=== PATIENT | female | born 1950 | race Caucasian/White ===

== ENCOUNTER → 2016-11-08 | Outpatient (CLI) | payer OTHER ==
[~2016-11-08] MED LIST: ASCO500T87 PO; CALC8.5C PO; DEXT1LIQ PO; GLUC10007 PO; IBUP-103 PO; LEVO50TA PO; NUTRTAB PO; PRAV20TA PO; VITA400C15 PO; ZNTT/150 PO
--- NOTE | 2016-11-08 12:26 | MAMMOGRAPHY REPORT ---
BILATERAL DIGITAL SCREENING MAMMOGRAM WITH CAD: 11/08/2016 CLINICAL HISTORY: Routine screening. Patient has no complaints. TECHNIQUE: Current study was also evaluated with a Computer Aided Detection (CAD) system. Bilatera l CC and MLO views were obtained. COMPARISON: Comparison is made to exams dated: 11/03/2015 ultrasound, 11/03/2015 mammogram, 10/11/2015 mammogram, 10/09/2014 mammogram, 11/18/2012 mammogram, and 12/19/2010 mammogram - [facility]. BREAST COMPOSITION: There are scattered areas of fibroglandular density in both breasts. FINDINGS: No suspicious masses, calcifications, or areas of architectural distortion are noted in e ither breast. There has been no significant interval change compared to prior exams. IMPRESSION: ACR BI-RADS CATEGORY 1: NEGATIVE There is no mammographic evidence of malignancy. A 1 year screening mammogram is recommended. The p atient will receive written notification of the results. Approximately 10% of breast cancers are not detected with mammography. A negative mammographic repor t should not delay biopsy if a clinically suggestive mass is present. Nelida Holder M.D. /:11/08/2016 12:08:07 [employer]el[employer]earing Maker: Mary Maldonado, [facility] letter sent: Normal 1/2 BI-RADS Code: ACR BI-RADS Category 1: Negative
== END | disposition home or self-care (01) ==
LOC: C.MAMM 10:46
PROVIDERS: ATTEND Internal Medicine
DX: Z12.31 Encounter for screening mammogram for malignant neoplasm of breast (principal)

== ENCOUNTER → 2016-11-10 | Outpatient (CLI) | payer OTHER ==
[2016-11-10 12:39] LABS: BASO % 1.5 %; BASO ABS # 0.05 K/uL (0-0.2); COMPLETE YES; EOS % 2.9 %; HEMATOCRIT 42.4 % (37-47); IG% 0.3 %; LYMPH % 25.7 %; LYMPH ABS # 0.88 K/uL (1.2-3.4); MEAN CELL VOLUME 93.4 fL (80-100); MEAN CORPUSCULAR HEMOGLOBIN 30.4 pg (25-34); MEAN CORPUSCULAR HGB CONC 32.5 g/dl (32-36); MEAN PLATELET VOLUME 10.7 fL (7.4-10.4); MONO % 9.1 %; NEUT % 60.5 %; PLATELET COUNT 228 K/uL (130-400); RED BLOOD COUNT 4.54 M/uL (4.2-5.4); WHITE BLOOD COUNT 3.42 K/uL (4.8-10.8)
[2016-11-10 13:03] LABS: CHOLESTEROL/HDL RATIO 3.3
== END | disposition home or self-care (01) ==
LOC: C.LABBFT 07:45
PROVIDERS: ATTEND Internal Medicine
DX: E78.00 Pure hypercholesterolemia, unspecified (principal); D72.819 Decreased white blood cell count, unspecified

== ENCOUNTER → 2016-11-15 | Outpatient (CLI) | payer OTHER | END | disposition home or self-care (01) | LOC: C.LABBFT 09:00 | PROVIDERS: ATTEND Internal Medicine | DX: Z11.59 Encounter for screening for other viral diseases (principal) ==

== ENCOUNTER → 2017-05-14 | Outpatient (CLI) | payer OTHER ==
[2017-05-14 12:24] LABS: URINE APPEARANCE CLEAR (CLEAR); URINE BILIRUBIN NEG (NEG); URINE COLOR YELLOW; URINE EPITHELIAL CELL AUTO 0-5 /lpf (0-5); URINE NITRITE NEG (NEG); URINE PH 8.5 (4.5-7.5); URINE SPECIFIC GRAVITY 1.006 (1.000-1.030); UROBILINOGEN NEG (NEG); ZZUR CULT IF INDIC CLEAN CATCH NO
[2017-05-14 12:26] LABS: BASO % 0.8 %; BASO ABS # 0.03 K/uL (0-0.2); COMPLETE YES; EOS % 2.5 %; HEMATOCRIT 42.3 % (37-47); IG% 0.3 %; LYMPH % 27.4 %; LYMPH ABS # 0.99 K/uL (1.2-3.4); MEAN CELL VOLUME 93.4 fL (80-100); MEAN CORPUSCULAR HEMOGLOBIN 30.2 pg (25-34); MEAN CORPUSCULAR HGB CONC 32.4 g/dl (32-36); MEAN PLATELET VOLUME 10.4 fL (7.4-10.4); MONO % 8.3 %; NEUT % 60.7 %; PLATELET COUNT 232 K/uL (130-400); RED BLOOD COUNT 4.53 M/uL (4.2-5.4); WHITE BLOOD COUNT 3.61 K/uL (4.8-10.8)
[2017-05-14 12:28] LABS: MANUAL MICROSCOPIC REQUIRED? NO; REVIEW REQ? NO
[2017-05-14 13:03] LABS: ALT/SGPT 17 U/L (12-78); AST/SGOT 14 U/L (15-37); BLOOD UREA NITROGEN 11 mg/dl (7-18); BUN/CREATININE RATIO 12.7 (10-20); CALCIUM 8.9 mg/dl (8.5-10.1); CARBON DIOXIDE 31 mmol/L (21-32); CHLORIDE 105 mmol/L (98-107); CREATININE 0.89 mg/dl (0.60-1.20); GLUCOSE 83 mg/dl (70-99); POTASSIUM 4.2 mmol/L (3.5-5.1); SODIUM 139 mmol/L (136-145)
[2017-05-14 13:14] LABS: ALB/GLOB RATIO 1.1 (0.9-2); ALKALINE PHOSPHATASE 72 U/L (45-117)
== END | disposition home or self-care (01) ==
LOC: C.LABBFT 07:36
PROVIDERS: ATTEND Internal Medicine
DX: D72.819 Decreased white blood cell count, unspecified (principal); E03.9 Hypothyroidism, unspecified

== ENCOUNTER → 2017-05-18 | Outpatient (CLI) | payer OTHER ==
--- NOTE | 2017-05-18 10:02 | DIAGNOSTIC IMAGING REPORT ---
ABDOMEN COMPLETE (US) CLINICAL HISTORY: Right upper quadrant abdominal pain. COMPARISON STUDY: Right upper quadrant ultrasound March 10, 2014 and July 16, 2014. FINDINGS: Liver morphology is normal. Note is made of a 2.4 cm septated hepatic cyst which is similar to prior exam of July 16, 2014. There is no biliary ductal dilatation. Common bile duct measures 4 mm in caliber. A few small gallbladder polyps measuring up to 4 mm are noted. These were shown on exam of March 10, 2014. These are unchanged. There is no gallbladder wall thickening. No shadowing gallstones are identified. The size of the spleen is normal although the spleen is partially obscured. The right kidney measures 10.6 cm and the left measures 11.4 cm. There is no hydronephrosis. There is a 1.3 cm left renal cyst. Caliber of the abdominal aorta is normal. Visualized portions of the IVC are patent. IMPRESSION: 1. No gallstones or biliary ductal dilatation. 2. No change in a few small gallbladder polyps since exam of March 10, 2014. 3. 2.4 cm hepatic cyst and 1.3 cm left renal cyst Electronically signed by: Jose Daniel Waters M.D. 05/18/2017 10:00 AM Dictated Date/Time: 05/18/2017 9:57 AM
== END | disposition home or self-care (01) ==
LOC: C.ULTR 09:14
PROVIDERS: ATTEND Internal Medicine
DX: R10.11 Right upper quadrant pain (principal); K76.89 Other specified diseases of liver; N28.1 Cyst of kidney, acquired

== ENCOUNTER → 2017-06-04 | Outpatient (CLI) | payer OTHER ==
[~2017-06-04] MED LIST changes: +SINCALIDE IV ONE; +SODIUM CHLORIDE 0.9% IV ONE
--- NOTE | 2017-06-04 10:04 | DIAGNOSTIC IMAGING REPORT ---
NUCLEAR MEDICINE HEPATOBILIARY STUDY WITH EJECTION FRACTION ANALYSIS CLINICAL HISTORY: R10.11 right upper quadrant abdominal pain COMPARISON STUDY: Abdominal ultrasound dated 05/18/2017 FINDINGS: The patient was injected with 5.5 mCi of technetium 99m Choletec. Anterior imaging was performed. Hepatic excretion appeared unremarkable. There was normal passage of activity into small bowel. The gallbladder was first visualized in the 15 minute image. I1 hour, the patient was administered 1.2 mcg of sincalide utilizing a 30 minute infusion. The gallbladder continued to accumulate activity for 21 minutes following the start of the sincalide infusion. The gallbladder ejection fraction was slightly diminished, measuring 34%.. IMPRESSION: 1. No evidence of cystic duct obstruction 2. Slightly diminished gallbladder ejection fraction of 34%. Electronically signed by: Bismark Barbosa M.D. 06/04/2017 10:03 AM Dictated Date/Time: 06/04/2017 9:58 AM
== END | disposition home or self-care (01) ==
LOC: C.NUCL 07:39
PROVIDERS: ATTEND Internal Medicine
DX: R10.11 Right upper quadrant pain (principal)

== ENCOUNTER → 2017-06-21 | Outpatient (CLI) | payer OTHER ==
[~2017-06-21] MED LIST changes: -SINCALIDE IV ONE; -SODIUM CHLORIDE 0.9% IV ONE
== END | disposition home or self-care (01) ==
LOC: C.MAMM 15:37
PROVIDERS: ATTEND Internal Medicine
DX: M85.88 Other specified disorders of bone density and structure, other site (principal); M85.851 Other specified disorders of bone density and structure, right thigh; M85.852 Other specified disorders of bone density and structure, left thigh

== ENCOUNTER → 2017-11-27 | Outpatient (CLI) | payer OTHER ==
[~2017-11-27] MED LIST changes: +RANI150T85 PO; -ZNTT/150 PO
[2017-11-27 12:26] LABS: BASO % 0.5 %; BASO ABS # 0.02 K/uL (0-0.2); EOS % 1.6 %; EOS ABS # 0.06 K/uL (0-0.5); HEMATOCRIT 41.9 % (37-47); HEMOGLOBIN 13.9 g/dL (12.0-16.0); IG# 0.01 K/uL (0.00-0.02); LYMPH % 25.2 %; LYMPH ABS # 0.92 K/uL (1.2-3.4); MEAN CELL VOLUME 91.5 fL (80-100); MEAN CORPUSCULAR HEMOGLOBIN 30.3 pg (25-34); MEAN CORPUSCULAR HGB CONC 33.2 g/dl (32-36); MEAN PLATELET VOLUME 10.4 fL (7.4-10.4); MONO % 7.1 %; MONO ABS # 0.26 K/uL (0.11-0.59); NEUT % 65.3 %; NEUT ABS # 2.38 K/uL (1.4-6.5); PLATELET COUNT 226 K/uL (130-400); RED CELL DISTRIBUTION WIDTH CV 13.3 % (11.5-14.5); RED CELL DISTRIBUTION WIDTH SD 44.5 fL (36.4-46.3); WHITE BLOOD COUNT 3.65 K/uL (4.8-10.8)
== END | disposition home or self-care (01) ==
LOC: C.LABBFT 10:20
PROVIDERS: ATTEND Internal Medicine
DX: E03.9 Hypothyroidism, unspecified (principal); D72.819 Decreased white blood cell count, unspecified; M85.80 Other specified disorders of bone density and structure, unspecified site; E78.00 Pure hypercholesterolemia, unspecified